=== PATIENT | female | born 1975 | race Caucasian/White ===

== ENCOUNTER 2024-04-15 07:19 | Emergency (ER) | payer BC, SELFPAY ==
[2024-04-15] MEDS ORDERED: Acetaminophen 500 MG TAB ONE (08:16)
== END 2024-04-15 09:15 | disposition home or self-care (01) ==
LOC: NAV ERS 07:19
DX: S16.1XXA Strain of muscle, fascia and tendon at neck level, initial encounter (principal); S80.01XA Contusion of right knee, initial encounter; F17.290 Nicotine dependence, other tobacco product, uncomplicated; X50.1XXA Overexertion from prolonged static or awkward postures, initial encounter
CPT/HCPCS: 71046; 72125; 72128